=== PATIENT | male | born 1940 | race African-American/Black ===

== ENCOUNTER 2017-05-10 07:25 | Emergency (ER) | payer MEDICARE ==
[2017-05-10] MEDS ORDERED: Fluconazole 100 MG TAB ONE (07:51)
[2017-05-10 08:15] LABS: Bilirubin Negative (Negative); Blood, Urine Negative (Negative); Glucose, Urine (Dipstick) 500 mg/dL (Negative); Leukocyte Trace (Negative); Nitrite Positive (Negative); Protein, Urine (Dipstick) Negative (Neg-Trace); Urobilinogen 0.2 mg/dL (0.2-1.0)
[2017-05-10 08:22] LABS: Clarity Hazy (Clear)
[2017-05-10 08:24] LABS: Anion Gap 14 mmol/L (10-20); BUN (Urea Nitrogen) 8 mg/dL (8.4-25.7); Calc. Creatinine Clearance 0 mL/min (70-130); Calcium 9.6 mg/dL (7.8-10.44); Carbon Dioxide 22 mmol/L (23-31); Chloride 101 mmol/L (98-107); Estimated GFR-MDRD 70; Glucose 381 mg/dL (83-110); Potassium 4.3 mmol/L (3.5-5.1); Sodium 133 mmol/L (136-145)
[2017-05-10 08:24] LABS: Bacteria/HPF 2+ HPF (None Seen); RBC/HPF 0-3 HPF (0-3); Squamous Epithelial 0-3 HPF (0-3); Yeast-All Forms Rare HPF (None Seen)
[2017-05-10] MEDS ORDERED: Sulfameth/Trimethoprim DS 800-160mg TAB ONE (08:29)
[2017-05-10 08:56] LABS: #Basophils 0.1 thou/uL (0.0-0.2); #Eosinphils 0.1 thou/uL (0.0-0.7); #Lymphocytes 1.4 thou/uL (1.20-3.40); #Monocytes 0.8 thou/uL (0.11-0.59); #Neutrophils 6.8 thou/uL (1.40-6.50); %Basophils 0.7 % (0.0-1.0); %Eosinophils 1.3 % (0.0-10.0); %Lymphocytes 15.2 % (21.0-51.0); %Monocytes 8.9 % (0.0-10.0); Anisocytosis SLIGHT = 6-15 cells (100X) (0-5/hpf); Elliptocytes SLIGHT = 2-5 cells (100X) (0-1/hpf); Hemoglobin 6.7 g/dL (14.0-18.0); Hypochromia MODERATE=16-30 cells (100X) (0-5/hpf); MDiff Complete? YES; Mean Corpuscular HGB CONC 27.6 g/dL (32.0-36.0); Mean Corpuscular Hemoglobin 16.9 pg (27.0-31.0); Mean Corpuscular Volume 61.4 fl (80.0-94.0); Mean Platelet Volume 6.7 fL (7.4-10.4); Microcytosis MODERATE=15-30 cells (100X) (0-5/hpf); Platelet Count 307 thou/uL (130-400); Poikilocytosis SLIGHT = 6-15 cells (100X) (0-5/hpf); RBC Distribution Width 15.7 % (11.5-14.5); Red Blood Cell (RBC) Count 3.95 mill/uL (4.70-6.10); Rouleaux Formation SLIGHT = 1-5 cells (100X) (None Seen); Schistocytes SLIGHT = 2-5 cells (100X) (0-1/hpf); Tear Drops SLIGHT = 2-5 cells (100X) (0-1/hpf); White Blood Cell (WBC) Count 9.3 thou/uL (4.8-10.8)
== END 2017-05-10 09:20 | disposition short-term general hospital (02) ==
LOC: BURERS 07:25
DX: N47.2 Paraphimosis (principal); B37.42 Candidal balanitis; D64.9 Anemia, unspecified; E11.65 Type 2 diabetes mellitus with hyperglycemia; I11.0 Hypertensive heart disease with heart failure; I50.9 Heart failure, unspecified; E78.5 Hyperlipidemia, unspecified; Z87.891 Personal history of nicotine dependence
CPT/HCPCS: 36415; 36416; 80048; 81003; 81015; 82274; 85025; 87077; 87086; 87186; 99284

== ENCOUNTER 2019-04-19 17:26 | Emergency (ER) | payer MEDICARE ==
[2019-04-19 18:19] LABS: #Basophils 0.1 thou/uL (0.0-0.2); #Eosinphils 0.3 thou/uL (0.0-0.7); #Monocytes 0.8 thou/uL (0.11-0.59); #Neutrophils 5.1 thou/uL (1.40-6.50); %Basophils 1.1 % (0.0-1.0); %Lymphocytes 23.7 % (21.0-51.0); %Monocytes 9.6 % (0.0-10.0); %Neutrophils 62.5 % (42.0-75.0); Hemoglobin 6.7 g/dL (14.0-18.0); Hypochromia MARKED = >30 cells (100X) (0-5/hpf); MDiff Complete? YES; Macrocytosis SLIGHT = 6-15 cells (100X) (0-5/hpf); Mean Corpuscular HGB CONC 27.5 g/dL (32.0-36.0); Mean Corpuscular Hemoglobin 17.8 pg (27.0-31.0); Mean Corpuscular Volume 64.8 fL (78.0-98.0); Mean Platelet Volume 7.1 fL (7.4-10.4); Microcytosis MARKED = >30 cells (100X) (0-5/hpf); Platelet Count 344 thou/uL (130-400); Polychromasia SLIGHT = 2-3 cells (100X) (0-2/hpf); RBC Distribution Width 18.5 % (11.5-14.5); Red Blood Cell (RBC) Count 3.78 mill/uL (4.70-6.10); White Blood Cell (WBC) Count 8.2 thou/uL (4.8-10.8)
[2019-04-19 18:22] LABS: ALT (SGPT) 11 U/L (8-55); AST (SGOT) 11 U/L (5-34); Albumin 3.8 g/dL (3.4-4.8); Alkaline Phosphatase 90 U/L (40-110); Anion Gap 14 mmol/L (10-20); BUN (Urea Nitrogen) 10 mg/dL (8.4-25.7); Bilirubin, Total 0.3 mg/dL (0.2-1.2); Calc. Creatinine Clearance 0 mL/min (70-130); Calcium 9.8 mg/dL (7.8-10.44); Carbon Dioxide 25 mmol/L (23-31); Chloride 103 mmol/L (98-107); Estimated GFR-MDRD 63; Globulin 3.4 g/dL (2.4-3.5); Glucose 183 mg/dL (83-110); Protein, Total 7.2 g/dL (5.8-8.1); Sodium 138 mmol/L (136-145)
--- NOTE | 2019-04-19 18:33 | RAD ---
Chest one view HISTORY: Dyspnea. COMPARISON: 06/25/2017. FINDINGS: Cardiac silhouette is magnified by projection. Pulmonary vasculature accentuated by shallow inspiration. Mediastinum is midline with a right subclavian Port-A-Cath. No lobar consolidation or evidence of pneumothorax. IMPRESSION: No active cardiopulmonary abnormalities are demonstrated.
== END 2019-04-19 23:08 | disposition home or self-care (01) ==
LOC: BURERS 17:26
DX: D50.9 Iron deficiency anemia, unspecified (principal); I11.0 Hypertensive heart disease with heart failure; I50.9 Heart failure, unspecified; E11.9 Type 2 diabetes mellitus without complications; E78.5 Hyperlipidemia, unspecified; E78.00 Pure hypercholesterolemia, unspecified; F17.210 Nicotine dependence, cigarettes, uncomplicated; Z79.899 Other long term (current) drug therapy; Z79.4 Long term (current) use of insulin; Z79.82 Long term (current) use of aspirin
CPT/HCPCS: 36430; 71045; 80053; 83880; 84484; 85025; 86850; 86900; 86901; 93005; P9016

== ENCOUNTER 2019-05-18 04:16 | Emergency (ER) | payer MEDICARE ==
[2019-05-18 04:56] LABS: #Basophils 0.1 thou/uL (0.0-0.2); #Eosinphils 0.4 thou/uL (0.0-0.7); #Monocytes 0.7 thou/uL (0.11-0.59); #Neutrophils 7.2 thou/uL (1.40-6.50); %Basophils 0.7 % (0.0-1.0); %Eosinophils 4.1 % (0.0-10.0); %Lymphocytes 21.2 % (21.0-51.0); %Monocytes 6.3 % (0.0-10.0); %Neutrophils 67.6 % (42.0-75.0); Anisocytosis MODERATE=16-30 cells (100X) (0-5/hpf); Hemoglobin 8.6 g/dL (14.0-18.0); Howell Jolly Bodies SLIGHT = 1-2 cells (100X) (None Seen); Hypochromia SLIGHT = 6-15 cells (100X) (0-5/hpf); MDiff Complete? YES; Mean Corpuscular HGB CONC 30.2 g/dL (32.0-36.0); Mean Corpuscular Hemoglobin 20.1 pg (27.0-31.0); Mean Corpuscular Volume 66.7 fL (78.0-98.0); Mean Platelet Volume 7.3 fL (7.4-10.4); Microcytosis SLIGHT = 6-15 cells (100X) (0-5/hpf); Ovalocytes SLIGHT = 2-5 cells (100X) (0-1/hpf); Platelet Count 299 thou/uL (130-400); Platelet Morphology Comment Appears Adequate; Polychromasia SLIGHT = 2-3 cells (100X) (0-2/hpf); RBC Distribution Width 20.6 % (11.5-14.5); Red Blood Cell (RBC) Count 4.26 mill/uL (4.70-6.10); Target Cells SLIGHT = 2-5 cells (100X) (0-1/hpf); Tear Drops SLIGHT = 2-5 cells (100X) (0-1/hpf); Vacuoles SLIGHT; White Blood Cell (WBC) Count 10.7 thou/uL (4.8-10.8)
[2019-05-18 05:00] LABS: ALT (SGPT) 15 U/L (8-55); AST (SGOT) 11 U/L (5-34); Albumin 3.7 g/dL (3.4-4.8); Alkaline Phosphatase 99 U/L (40-110); Anion Gap 14 mmol/L (10-20); BUN (Urea Nitrogen) 9 mg/dL (8.4-25.7); Bilirubin, Total 0.2 mg/dL (0.2-1.2); CK (CPK) 293 U/L (30-200); Calc. Creatinine Clearance 0 mL/min (70-130); Calcium 9.5 mg/dL (7.8-10.44); Carbon Dioxide 24 mmol/L (23-31); Chloride 101 mmol/L (98-107); Estimated GFR-MDRD 62; Globulin 3.5 g/dL (2.4-3.5); Glucose 325 mg/dL (83-110); Lipase 60 U/L (8-78); Potassium 4.2 mmol/L (3.5-5.1); Protein, Total 7.2 g/dL (5.8-8.1); Sodium 135 mmol/L (136-145)
[2019-05-18 05:17] LABS: CKMB 3.3 ng/mL (0-6.6)
[2019-05-18] MEDS ORDERED: Aspirin Chewable 81 MG TAB ONE (05:34)
--- NOTE | 2019-05-18 06:41 | RAD ---
PORTABLE CHEST: Date: 05/18/2019 An AP portable film at 0440 hours is compared to the 04/19/2019 study. The heart size is normal and unchanged. A MediPort catheter remains in place on the right. there is n o focal pulmonary infiltrate or effusion. No edema or definite congestion seen. Trachea is midline. IMPRESSION: No acute thoracic findings. POS: HOME
[2019-05-18 07:23] LABS: #Lymphocytes 2.3 thou/uL (1.20-3.40)
== END 2019-05-18 05:57 | disposition short-term general hospital (02) ==
LOC: BURERS 04:16
DX: R07.9 Chest pain, unspecified (principal); E11.9 Type 2 diabetes mellitus without complications; I50.9 Heart failure, unspecified; I11.0 Hypertensive heart disease with heart failure; E78.00 Pure hypercholesterolemia, unspecified; F17.210 Nicotine dependence, cigarettes, uncomplicated; Z79.4 Long term (current) use of insulin; Z79.82 Long term (current) use of aspirin; Z79.899 Other long term (current) drug therapy
CPT/HCPCS: 71045; 80053; 82550; 82553; 83690; 83880; 84484; 85025; 93005

== ENCOUNTER 2020-02-13 19:08 | Observation (INO) | payer MEDICARE ==
[2020-02-13 20:11] LABS: Hemoglobin 5.3 g/dL (14.0-18.0); Mean Corpuscular HGB CONC 28.1 g/dL (32.0-36.0); Mean Corpuscular Hemoglobin 19.2 pg (27.0-31.0); Mean Corpuscular Volume 68.4 fL (78.0-98.0); Platelet Count 171 thou/uL (130-400); RBC Distribution Width 18.4 % (11.5-14.5); Red Blood Cell (RBC) Count 2.75 mill/uL (4.70-6.10); White Blood Cell (WBC) Count 8.4 thou/uL (4.8-10.8)
[2020-02-13 20:28] LABS: ALT (SGPT) 14 U/L (8-55); AST (SGOT) 13 U/L (5-34); Albumin 3.4 g/dL (3.4-4.8); Alkaline Phosphatase 104 U/L (40-110); Anion Gap 14 mmol/L (10-20); BUN (Urea Nitrogen) 14 mg/dL (8.4-25.7); Bilirubin, Total 0.3 mg/dL (0.2-1.2); Calc. Creatinine Clearance 0 mL/min (70-130); Calcium 8.8 mg/dL (7.8-10.44); Carbon Dioxide 24 mmol/L (23-31); Chloride 101 mmol/L (98-107); Globulin 2.8 g/dL (2.4-3.5); Glucose 329 mg/dL (83-110); Protein, Total 6.2 g/dL (5.8-8.1); Sodium 135 mmol/L (136-145)
[2020-02-13 20:29] LABS: #Basophils 0.1 thou/uL (0.0-0.2); #Eosinphils 0.2 thou/uL (0.0-0.7); #Lymphocytes 1.6 thou/uL (1.20-3.40); #Monocytes 0.7 thou/uL (0.11-0.59); #Neutrophils 5.8 thou/uL (1.40-6.50); %Basophils 0.9 % (0.0-1.0); %Eosinophils 2.3 % (0.0-10.0); %Lymphocytes 18.8 % (21.0-51.0); %Monocytes 8.2 % (0.0-10.0); %Neutrophils 69.8 % (42.0-75.0); Elliptocytes SLIGHT = 2-5 cells (100X) (0-1/hpf); Hypochromia MODERATE=16-30 cells (100X) (0-5/hpf); MDiff Complete? YES; Macrocytosis MODERATE=16-30 cells (100X) (0-5/hpf); Microcytosis MARKED = >30 cells (100X) (0-5/hpf)
--- NOTE | 2020-02-13 21:29 | RAD ---
PORTABLE CHEST: 02/13/20 An AP portable film at 1939 is compared with a 05/26/19 study. The heart is slightly enlarged but no more so than before. There is some very minor prominence of th e vasculature. This could represent very early congestive change, but the findings is borderline. The re are no large effusions, gross pulmonary infiltrates of concern. A Mediport catheter is in place as before. The tip is in the vicinity of the superior vena cava. That tip does appear to have worked a little more proximal than it was before. IMPRESSION: 1. Mild cardiomegaly no different than before, but there is a question of slight vascular conges tion. 2. The tubing of the Mediport catheter appears to have retracted superiorly slightly since the nhan hernández study. POS: HOME
[2020-02-13] MEDS ORDERED: HYDROcodone/Acetaminophen 5/325 mg Tablet PO PRN (23:15)
[2020-02-13] MEDS ORDERED: Ondansetron ODT 4 MG TAB SL PRN (23:15)
[2020-02-13] MEDS ORDERED: Acetaminophen 325 MG TAB PO PRN (23:15)
[2020-02-13] MEDS ORDERED: Ondansetron PF 4 MG/2 ML Vial IVP PRN (23:15)
[2020-02-14 01:44] VITALS: BMI 26.7
[2020-02-14] MEDS ORDERED: clonazePAM 0.5 MG TAB PO PRN (06:24)
[2020-02-14] MEDS ORDERED: Haloperidol 5 MG TAB PO PRN (06:24)
[2020-02-14] MEDS ORDERED: Insulin Regular 300 UNITS/3 ML VIAL SC SCH ×2 (06:30→10:59)
[2020-02-14 08:18] LABS: Hemoglobin 7.2 g/dL (14.0-18.0); Mean Corpuscular HGB CONC 29.9 g/dL (32.0-36.0); Mean Corpuscular Hemoglobin 21.8 pg (27.0-31.0); Platelet Count 168 thou/uL (130-400); RBC Distribution Width 22.1 % (11.5-14.5); Red Blood Cell (RBC) Count 3.29 mill/uL (4.70-6.10); White Blood Cell (WBC) Count 7.5 thou/uL (4.8-10.8)
[2020-02-14 08:20] LABS: Anion Gap 15 mmol/L (10-20); BUN (Urea Nitrogen) 16 mg/dL (8.4-25.7); Calc. Creatinine Clearance 55 mL/min (70-130); Calcium 8.8 mg/dL (7.8-10.44); Carbon Dioxide 22 mmol/L (23-31); Chloride 101 mmol/L (98-107); Glucose 465 mg/dL (83-110); Potassium 4.5 mmol/L (3.5-5.1); Sodium 133 mmol/L (136-145)
[2020-02-14 08:43] LABS: #Basophils 0.1 thou/uL (0.0-0.2); #Eosinphils 0.1 thou/uL (0.0-0.7); #Monocytes 0.7 thou/uL (0.11-0.59); #Neutrophils 5.5 thou/uL (1.40-6.50); %Basophils 0.7 % (0.0-1.0); %Eosinophils 1.5 % (0.0-10.0); %Lymphocytes 13.9 % (21.0-51.0); %Monocytes 9.8 % (0.0-10.0); Anisocytosis SLIGHT = 6-15 cells (100X) (0-5/hpf); Elliptocytes SLIGHT = 2-5 cells (100X) (0-1/hpf); Hypochromia SLIGHT = 6-15 cells (100X) (0-5/hpf); MDiff Complete? YES; Macrocytosis SLIGHT = 6-15 cells (100X) (0-5/hpf); Microcytosis MODERATE=15-30 cells (100X) (0-5/hpf); Platelet Morphology Comment Appears Adequate; Polychromasia SLIGHT = 2-3 cells (100X) (0-2/hpf); Target Cells SLIGHT = 2-5 cells (100X) (0-1/hpf)
[2020-02-14] MEDS ORDERED: Non-Formulary Item 1 EACH (Insulin Detemir [Levemir Flextouch] 100 UNIT/ML Insuln.Pen) SQ SCH (09:00)
[2020-02-14] MEDS ORDERED: Aspirin 81 mg Enteric Coated Tablet PO SCH (09:00)
[2020-02-14] MEDS ORDERED: Cyanocobalamin (Vitamin B-12) 1,000 MCG TAB PO SCH (09:00)
[2020-02-14] MEDS ORDERED: Non-Formulary Item 1 EACH (Cyanocobalamin (Vitamin B-12) [Vitamin B-12] 1,000 MCG Capsule PO SCH (09:00)
[2020-02-14] MEDS ORDERED: Lantus 1000 UNITS/10 ML VIAL SC SCH ×2 (09:00→21:00)
[2020-02-14] MEDS ORDERED: FLU VACC QS2020-21(65YR UP)/PF 240 MCG/0.7 ML SYRINGE IM ONE (09:00)
[2020-02-14] MEDS ORDERED: Folic Acid 1 MG TAB PO SCH (09:00)
[2020-02-14] MEDS ORDERED: Insulin Regular 300 UNITS/3 ML VIAL SC PRN (13:30)
[2020-02-14] MEDS ORDERED: Dextrose 5% in Water 1,000 ML IV PRN (13:30)
[2020-02-14] MEDS ORDERED: Dextrose 50% Abboject 50 ML SYRINGE IVP PRN (13:30)
[2020-02-14] MEDS ORDERED: Lisinopril 10 MG TAB PO SCH (14:15)
[2020-02-14] MEDS ORDERED: Carvedilol 3.125 MG TAB PO SCH (17:00)
[2020-02-14 17:48] VITALS: BP 164/80; TEMP 98
[2020-02-14] MEDS ORDERED: Atorvastatin Calcium 40 MG TAB PO SCH (21:00)
[2020-02-14] MEDS ORDERED: Non-Formulary Item 1 EACH (Atorvastatin Calcium [Lipitor] 20 MG Tab) PO SCH (21:00)
--- NOTE | 2020-02-15 03:17 | DIS ---
DATE OF ADMISSION: 02/13/2020 DATE OF DISCHARGE: 02/14/2020 DISCHARGE DIAGNOSIS: Acute on chronic anemia. DISPOSITION: Home. HOSPITAL COURSE: Patient was admitted with 5.3 hemoglobin with a history of chronic anemia followed by Oncology, Dr. Tam, and PCP is Dr. Leroy. He was given 2 units of packed cells and IV hydration slowly over a period of 12-16 hours. He tolerated the infusion well. He improved his hemoglobin to 7.2 and was sent home on a diabetic diet. ACTIVITY: As tolerated. ALLERGIES: NO KNOWN ALLERGIES. CODE STATUS: Full. MEDICATIONS: 1. Aspirin 81 mg. 2. Atorvastatin 40 mg. 3. Carvedilol 3.125 mg b.i.d. 4. Cyanocobalamin 1000 mcg daily. 5. Folic acid 1 mg daily. 6. Glipizide 2.5 mg daily. 7. 12 units of Lantus insulin subcu b.i.d. 8. Isosorbide mononitrate 30 mg daily. 9. Lisinopril 20 mg daily. 10. Pantoprazole 40 mg daily. FOLLOWUP: With his PCP, Dr. Leroy, for repeat CBC and continued care. Job ID: [id number] [facility]
--- NOTE | 2020-02-15 05:48 | HP ---
HISTORY OF PRESENT ILLNESS: This is a 79-year-old male patient with a history of chronic anemia, who presented to [facility] Emergency Room with a complaint of weakness. He reports he felt as he usually does when he has in past needed blood transfusion. His fecal occult blood was negative. His initial hemoglobin was 5.3. Primary care physician is Kory Fuentes DO. CHIEF COMPLAINT: Weakness. REVIEW OF SYSTEMS: CONSTITUTIONAL: No fevers, chills, weight gain or weight loss. EYES: Denies blurry vision, discharge, or redness. ENT: Denies congestion, cough, or sore throat. CARDIOVASCULAR: Denies chest pain, dyspnea, edema, or palpitations. PULMONARY: No coughing, wheezing, or shortness of breath. GASTROINTESTINAL: Denies abdominal pain, nausea, or vomiting. No diarrhea or constipation. GENITOURINARY: Denies dysuria or hematuria. MUSCULOSKELETAL: He has chronic arthritis. Complains of joint pain, but no swelling. SKIN: No rash or lesion. NEUROLOGIC: He does have complaint of weakness, but no dizziness or motor changes. PAST MEDICAL HISTORY: Coronary artery disease, diastolic congestive heart failure, hypertension, dyslipidemia, prostate cancer, colon cancer. He has chronic iron deficiency anemia requiring occasional iron infusions followed by Dr. Tam. Most recently in April of 2019 he required 2 units of packed cells, and he has type 2 diabetes mellitus. PAST SURGICAL HISTORY: 1. PTCA angioplasty. 2. Prostate biopsy. 3. Partial colectomy for colon cancer. 4. He has a MediPort in place. SOCIAL HISTORY: He is a nonsmoker. No alcohol or recreational drug. He quit smoking three months ago. He is a . He lives with his brother and his adult children. FAMILY HISTORY: Significant for colon cancer, diabetes, coronary artery disease in his father and hypertension in his mother. ALLERGIES: NO KNOWN DRUG ALLERGIES. CURRENT MEDICATIONS: 1. Lisinopril 20 mg daily. 2. Carvedilol 3.125 b.i.d. 3. Atorvastatin 40 mg daily. 4. Lantus 12 units b.i.d. 5. Ferrous gluconate 325 daily. 6. Isosorbide mononitrate 30 mg daily. 7. Aspirin 81 mg. 8. Pantoprazole 40 mg daily. 9. Glipizide 2.5 mg daily. 10. Cyanocobalamin 1000 mcg daily. 11. Folic acid 1 mg daily. PHYSICAL EXAMINATION: VITAL SIGNS: Temperature 98.6, heart rate 85, respirations 18, O2 saturation 99% on room air, blood pressure 139/66. GENERAL: Well-developed, mildly obese male, in no acute distress. HEENT: Pupils are equal, round, and reactive to light. He has bilateral cataracts. Oropharynx is clear without lesion. No erythema or exudate. NECK: Supple. No lymphadenopathy. No thyroid nodules or enlargement. No JVD. HEART: Regular rate and rhythm. No murmurs, rubs, or gallops. LUNGS: Clear to auscultation bilaterally. No wheezes or crackles. ABDOMEN: Soft, nontender to palpation. Normoactive bowel sounds. No mass or megaly. EXTREMITIES: No clubbing, cyanosis, or edema. SKIN: No rash or lesion. NEUROLOGIC: Intact grossly CN II through XII. Normal gross motor. He is alert, oriented x3. Normal mood and affect. LABORATORY DATA: His initial H and H were 5.3 and 18.8, WBC is 8.4, platelets 171. He has marked microcytosis. His H and H post transfusion 2 units packed cell was 7.2 and 24. Sodium 133, potassium 4.5, chloride 101, carbon dioxide 22, anion gap 15, BUN 16, creatinine 1.37, GFR 61, glucose 465, and calcium 8.8. IMAGING: Chest x-ray showed mild cardiomegaly with possible early congestion, but no effusion or infiltrate. MediPort catheter tip was in the superior vena cava. ASSESSMENT: Acute on chronic anemia, diabetes mellitus type 2, insulin dependent, hypertension, hyperglycemia, uncontrolled diabetes. Code status is full code. PLAN: 2 units of packed cells, gentle hydration, correct hyperglycemia with sliding scale insulin, regular insulin. If he responds to packed cells with adequate increase in his blood count, we will discharge later this afternoon. Job ID: [id number]
[2020-02-15] MEDS ORDERED: Lisinopril 10 MG TAB PO SCH (09:00)
[2020-02-15] MEDS ORDERED: Ferrous Gluconate 324 MG TAB PO SCH (09:00)
[2020-02-15 17:33] LABS: SARS-CoV-2 MS2 Positive; SARS-CoV-2 N Gene Negative; SARS-CoV-2 S Gene Negative; SARS-CoV-2 by NAA Not Detected (NotDetected); SARS-CoV-2 orf1ab Negative
== END 2020-02-14 17:45 | disposition home or self-care (01) ==
LOC: BURERS 19:08 → BURMED 22:23
PROVIDERS: ADMIT Family Medicine; ATTEND Family Medicine
DX: D50.9 Iron deficiency anemia, unspecified (principal); E11.65 Type 2 diabetes mellitus with hyperglycemia; I25.10 Atherosclerotic heart disease of native coronary artery without angina pectoris; I11.0 Hypertensive heart disease with heart failure; I50.30 Unspecified diastolic (congestive) heart failure; E78.5 Hyperlipidemia, unspecified; C61 Malignant neoplasm of prostate; Z85.038 Personal history of other malignant neoplasm of large intestine; Z87.891 Personal history of nicotine dependence; Z79.4 Long term (current) use of insulin; Z79.82 Long term (current) use of aspirin; Z79.899 Other long term (current) drug therapy; Z20.828 Contact with and (suspected) exposure to other viral communicable diseases
CPT/HCPCS: 36415; 36416; 36430; 71045; 80048; 80053; 82274; 84484; 85025; 86850; 86900; 86901; 86922; 87635; 93005; G0378; J1815; P9016; U0003

== ENCOUNTER 2020-06-19 18:31 | Emergency (ER) | payer MEDICARE ==
[2020-06-19 19:23] LABS: #Basophils 0.1 thou/uL (0.0-0.2); #Eosinphils 0.2 thou/uL (0.0-0.7); #Lymphocytes 1.4 thou/uL (1.20-3.40); #Monocytes 0.7 thou/uL (0.11-0.59); #Neutrophils 5.5 thou/uL (1.40-6.50); %Basophils 1.5 % (0.0-1.0); %Eosinophils 2.2 % (0.0-10.0); %Lymphocytes 17.2 % (21.0-51.0); %Monocytes 9.3 % (0.0-10.0); %Neutrophils 69.7 % (42.0-75.0); Hemoglobin 8.9 g/dL (14.0-18.0); Mean Corpuscular HGB CONC 30.4 g/dL (32.0-36.0); Mean Corpuscular Hemoglobin 24.7 pg (27.0-31.0); Mean Corpuscular Volume 81.1 fL (78.0-98.0); Mean Platelet Volume 9.5 fL (7.4-10.4); Platelet Count 203 thou/uL (130-400); RBC Distribution Width 15.9 % (11.5-14.5); Red Blood Cell (RBC) Count 3.61 mill/uL (4.70-6.10); White Blood Cell (WBC) Count 7.9 thou/uL (4.8-10.8)
[2020-06-19 19:32] LABS: MDiff Complete? YES
[2020-06-19 19:45] LABS: ALT (SGPT) 17 U/L (8-55); AST (SGOT) 15 U/L (5-34); Albumin 3.5 g/dL (3.4-4.8); Alkaline Phosphatase 139 U/L (40-110); Anion Gap 13 mmol/L (10-20); BUN (Urea Nitrogen) 8 mg/dL (8.4-25.7); Bilirubin, Total 0.3 mg/dL (0.2-1.2); Calc. Creatinine Clearance 0 mL/min (70-130); Calcium 9.3 mg/dL (7.8-10.44); Carbon Dioxide 27 mmol/L (23-31); Chloride 98 mmol/L (98-107); Globulin 3.3 g/dL (2.4-3.5); Glucose 394 mg/dL (83-110); Potassium 3.9 mmol/L (3.5-5.1); Protein, Total 6.8 g/dL (5.8-8.1); Sodium 134 mmol/L (136-145)
== END 2020-06-19 20:15 | disposition home or self-care (01) ==
LOC: BURERS 18:31
DX: R04.0 Epistaxis (principal); R07.9 Chest pain, unspecified; E11.65 Type 2 diabetes mellitus with hyperglycemia; K21.9 Gastro-esophageal reflux disease without esophagitis; F17.210 Nicotine dependence, cigarettes, uncomplicated; Z79.4 Long term (current) use of insulin; Z79.82 Long term (current) use of aspirin; Z79.899 Other long term (current) drug therapy
CPT/HCPCS: 71045; 80053; 83880; 84484; 85025; 93005

== ENCOUNTER 2020-07-17 11:15 | Emergency (ER) | payer MEDICARE | END 2020-07-17 12:45 | disposition home or self-care (01) | LOC: BURERS 11:15 | DX: K62.89 Other specified diseases of anus and rectum (principal); I11.0 Hypertensive heart disease with heart failure; I50.9 Heart failure, unspecified; E11.9 Type 2 diabetes mellitus without complications; K21.9 Gastro-esophageal reflux disease without esophagitis; F17.210 Nicotine dependence, cigarettes, uncomplicated; E78.5 Hyperlipidemia, unspecified; E78.00 Pure hypercholesterolemia, unspecified; Z79.4 Long term (current) use of insulin; Z79.899 Other long term (current) drug therapy; Z79.82 Long term (current) use of aspirin | CPT/HCPCS: 99281 ==

== ENCOUNTER 2020-08-04 17:06 | Emergency (ER) | payer MEDICARE ==
[2020-08-04 18:27] LABS: Hemoglobin 8.4 g/dL (14.0-18.0); Mean Corpuscular HGB CONC 29.1 g/dL (32.0-36.0); Mean Corpuscular Hemoglobin 21.8 pg (27.0-31.0); Mean Corpuscular Volume 74.7 fL (78.0-98.0); Mean Platelet Volume 8.2 fL (7.4-10.4); Platelet Count 379 thou/uL (130-400); RBC Distribution Width 19.4 % (11.5-14.5); Red Blood Cell (RBC) Count 3.85 mill/uL (4.70-6.10); White Blood Cell (WBC) Count 13.1 thou/uL (4.8-10.8)
[2020-08-04] MEDS ORDERED: Insulin Regular 300 UNITS/3 ML VIAL ONE (18:31)
[2020-08-04 18:32] LABS: ALT (SGPT) 14 U/L (8-55); AST (SGOT) 10 U/L (5-34); Albumin 3.5 g/dL (3.4-4.8); Alkaline Phosphatase 245 U/L (40-110); Anion Gap 16 mmol/L (10-20); BUN (Urea Nitrogen) 8 mg/dL (8.4-25.7); Bilirubin, Total 0.3 mg/dL (0.2-1.2); Calc. Creatinine Clearance 0 mL/min (70-130); Calcium 9.8 mg/dL (7.8-10.44); Carbon Dioxide 24 mmol/L (23-31); Chloride 97 mmol/L (98-107); Globulin 3.1 g/dL (2.4-3.5); Glucose 501 mg/dL (83-110); Potassium 4.1 mmol/L (3.5-5.1); Protein, Total 6.6 g/dL (5.8-8.1); Sodium 133 mmol/L (136-145)
[2020-08-04] MEDS ORDERED: cefTRIAXone\\ROCEPHIN 1 GM VIAL ONE (18:51)
[2020-08-04] MEDS ORDERED: Fluconazole 100 MG TAB ONE (18:51)
[2020-08-04 18:55] LABS: Anisocytosis SLIGHT = 6-15 cells (100X) (0-5/hpf); Band 1 % (5-11); Eosinophils 1 % (0-10); Hypochromia MARKED = >30 cells (100X) (0-5/hpf); Lymphocytes 9 % (21-51); MDiff Complete? YES; Metamyelocyte 1 % (0-0); Microcytosis SLIGHT = 6-15 cells (100X) (0-5/hpf); Monocytes 8 % (0-10); Neutrophil 79 % (42-75); Ovalocytes SLIGHT = 2-5 cells (100X) (0-1/hpf); Platelet Morphology Comment Appears Adequate
[2020-08-04 19:02] LABS: Bilirubin Negative (Negative); Blood, Urine Trace (Negative); Clarity Slightly Cloudy (Clear); Glucose, Urine (Dipstick) >=1000 mg/dL (Negative); Ketone, Urine Negative (Negative); Leukocyte Small (Negative); Nitrite Positive (Negative); Protein, Urine (Dipstick) Negative (Neg-Trace); Urobilinogen 0.2 mg/dL (Less than 2)
[2020-08-04 19:22] LABS: Bacteria/HPF 2+ HPF (None Seen); RBC/HPF 0-3 HPF (0-3); Squamous Epithelial 0-3 HPF (0-3); WBC/HPF 21-50 HPF (0-3); Yeast-Budding 1+ HPF (None Seen); Yeast-Hyphae 1+ HPF (None Seen)
== END 2020-08-04 22:10 | disposition short-term general hospital (02) ==
LOC: BURERS 17:06
DX: N47.6 Balanoposthitis (principal); E10.65 Type 1 diabetes mellitus with hyperglycemia; I11.0 Hypertensive heart disease with heart failure; I50.9 Heart failure, unspecified; K21.9 Gastro-esophageal reflux disease without esophagitis; E78.5 Hyperlipidemia, unspecified; E78.00 Pure hypercholesterolemia, unspecified; F17.210 Nicotine dependence, cigarettes, uncomplicated; Z79.899 Other long term (current) drug therapy; Z79.82 Long term (current) use of aspirin
CPT/HCPCS: 36415; 36416; 71045; 80053; 81003; 81015; 83605; 83880; 84484; 85025; 87040; 93005; 96365; 96367; 96375; J0696; J1815; J3370

== ENCOUNTER 2020-09-26 09:24 | Emergency (ER) | payer MEDICARE ==
[2020-09-26 10:21] LABS: ALT (SGPT) 10 U/L (8-55); AST (SGOT) 7 U/L (5-34); Alkaline Phosphatase 165 U/L (40-110); Anion Gap 14 mmol/L (10-20); BUN (Urea Nitrogen) 8 mg/dL (8.4-25.7); Bilirubin, Total 0.2 mg/dL (0.2-1.2); Calc. Creatinine Clearance 0 mL/min (70-130); Calcium 9.1 mg/dL (7.8-10.44); Carbon Dioxide 25 mmol/L (23-31); Chloride 101 mmol/L (98-107); Globulin 3.6 g/dL (2.4-3.5); Glucose 282 mg/dL (83-110); Lipase 26 U/L (8-78); Potassium 4.2 mmol/L (3.5-5.1); Protein, Total 6.6 g/dL (5.8-8.1); Sodium 136 mmol/L (136-145)
[2020-09-26] MEDS ORDERED: Morphine 4 MG/ML VIAL ONE (10:29)
[2020-09-26] MEDS ORDERED: HYDROcodone/Acetaminophen 10/325 mg Tablet ONE (10:32)
[2020-09-26 10:38] LABS: Mean Corpuscular HGB CONC 27.6 g/dL (32.0-36.0); Mean Corpuscular Hemoglobin 16.8 pg (27.0-31.0); Mean Platelet Volume 6.4 fL (7.4-10.4); Platelet Count 431 thou/uL (130-400); RBC Distribution Width 19.9 % (11.5-14.5); Red Blood Cell (RBC) Count 3.59 mill/uL (4.70-6.10); White Blood Cell (WBC) Count 9.1 thou/uL (4.8-10.8)
[2020-09-26 10:40] LABS: #Eosinphils 0.1 thou/uL (0.0-0.7); #Lymphocytes 1.3 thou/uL (1.20-3.40); #Monocytes 0.6 thou/uL (0.11-0.59); #Neutrophils 7.1 thou/uL (1.40-6.50); %Basophils 0.5 % (0.0-1.0); %Eosinophils 0.6 % (0.0-10.0); %Monocytes 7.1 % (0.0-10.0); %Neutrophils 77.9 % (42.0-75.0); Anisocytosis SLIGHT = 6-15 cells (100X) (0-5/hpf); Hypochromia MODERATE=16-30 cells (100X) (0-5/hpf); MDiff Complete? YES; Microcytosis SLIGHT = 6-15 cells (100X) (0-5/hpf); Ovalocytes SLIGHT = 2-5 cells (100X) (0-1/hpf)
== END 2020-09-26 10:56 | disposition home or self-care (01) ==
LOC: BURERS 09:24
DX: K21.9 Gastro-esophageal reflux disease without esophagitis (principal); E11.9 Type 2 diabetes mellitus without complications; I11.0 Hypertensive heart disease with heart failure; I50.9 Heart failure, unspecified; E78.5 Hyperlipidemia, unspecified; E78.00 Pure hypercholesterolemia, unspecified; Z87.891 Personal history of nicotine dependence; Z79.82 Long term (current) use of aspirin; Z79.899 Other long term (current) drug therapy
CPT/HCPCS: 36415; 74176; 80053; 83605; 83690; 85025; J2270

== ENCOUNTER 2020-10-03 13:11 | Observation (INO) | payer MEDICARE ==
[2020-10-03 13:36] LABS: #Lymphocytes 1.4 thou/uL (1.20-3.40); #Monocytes 0.7 thou/uL (0.11-0.59); #Neutrophils 5.9 thou/uL (1.40-6.50); %Basophils 0.3 % (0.0-1.0); %Eosinophils 0.4 % (0.0-10.0); %Lymphocytes 17.3 % (21.0-51.0); %Monocytes 8.6 % (0.0-10.0); %Neutrophils 73.5 % (42.0-75.0); Hemoglobin 5.1 g/dL (14.0-18.0); Mean Corpuscular HGB CONC 27.3 g/dL (32.0-36.0); Mean Corpuscular Hemoglobin 16.5 pg (27.0-31.0); Mean Corpuscular Volume 60.5 fL (78.0-98.0); Mean Platelet Volume 6.2 fL (7.4-10.4); Platelet Count 414 thou/uL (130-400); RBC Distribution Width 19.6 % (11.5-14.5); Red Blood Cell (RBC) Count 3.09 mill/uL (4.70-6.10); White Blood Cell (WBC) Count 8.1 thou/uL (4.8-10.8)
[2020-10-03 13:49] LABS: ALT (SGPT) 8 U/L (8-55); AST (SGOT) 6 U/L (5-34); Albumin 2.9 g/dL (3.4-4.8); Alkaline Phosphatase 139 U/L (40-110); Anion Gap 12 mmol/L (10-20); BUN (Urea Nitrogen) 9 mg/dL (8.4-25.7); Bilirubin, Total 0.3 mg/dL (0.2-1.2); Calc. Creatinine Clearance 0 mL/min (70-130); Carbon Dioxide 26 mmol/L (23-31); Chloride 104 mmol/L (98-107); Globulin 3.2 g/dL (2.4-3.5); Glucose 175 mg/dL (83-110); Protein, Total 6.1 g/dL (5.8-8.1); Sodium 138 mmol/L (136-145)
[2020-10-03 13:53] LABS: MDiff Complete? YES
[2020-10-03 13:56] LABS: Elliptocytes SLIGHT = 2-5 cells (100X) (0-1/hpf); Hypochromia SLIGHT = 6-15 cells (100X) (0-5/hpf); Macrocytosis SLIGHT = 6-15 cells (100X) (0-5/hpf); Microcytosis SLIGHT = 6-15 cells (100X) (0-5/hpf); Target Cells SLIGHT = 2-5 cells (100X) (0-1/hpf)
[2020-10-03 13:57] LABS: Basophilic Stippling SLIGHT = 1-2 cells (100X) (None Seen)
[2020-10-03] MEDS ORDERED: Meclizine HCl 25 MG TAB ONE (14:23)
[2020-10-03 14:24] LABS: INR-International Normal Ratio 1.2; PTT 39.1 sec (22.9-36.1)
[2020-10-03] MEDS ORDERED: Famotidine In NaCl 20 mg/50 ml Premix Bag ONE (16:01)
[2020-10-03] MEDS ORDERED: Ondansetron PF 4 MG/2 ML Vial IVP PRN (17:15)
[2020-10-03] MEDS ORDERED: Ondansetron ODT 4 MG TAB SL PRN (17:15)
[2020-10-03 17:31] VITALS: BMI 29.2
[2020-10-03] MEDS ORDERED: Senokot S 8.6-50 MG TAB PO PRN (17:51)
[2020-10-03] MEDS ORDERED: clonazePAM 0.5 MG TAB PO PRN ×2 (17:51→19:39)
[2020-10-03] MEDS: Sodium Chloride 0.9% 1,000 ML IV SCH (18:00)
[2020-10-03] MEDS: Acetaminophen 325 MG TAB PO PRN (19:17)
[2020-10-03] MEDS ORDERED: Insulin Regular 300 UNITS/3 ML VIAL SC PRN (19:26)
[2020-10-04] MEDS: Sodium Chloride 0.9% 1,000 ML IV SCH (01:57)
[2020-10-04] MEDS: Acetaminophen 325 MG TAB PO PRN (04:00)
[2020-10-04 05:35] LABS: Anion Gap 12 mmol/L (10-20); BUN (Urea Nitrogen) 9 mg/dL (8.4-25.7); Calc. Creatinine Clearance 75 mL/min (70-130); Calcium 8.6 mg/dL (7.8-10.44); Carbon Dioxide 24 mmol/L (23-31); Chloride 106 mmol/L (98-107); Glucose 138 mg/dL (83-110); Potassium 4.1 mmol/L (3.5-5.1); Sodium 138 mmol/L (136-145)
[2020-10-04 06:20] LABS: #Lymphocytes 1.2 thou/uL (1.20-3.40); #Monocytes 0.9 thou/uL (0.11-0.59); #Neutrophils 8.9 thou/uL (1.40-6.50); %Basophils 0.4 % (0.0-1.0); %Eosinophils 0.3 % (0.0-10.0); %Lymphocytes 10.6 % (21.0-51.0); %Monocytes 8.5 % (0.0-10.0); %Neutrophils 80.1 % (42.0-75.0); Mean Corpuscular Hemoglobin 19.4 pg (27.0-31.0); Mean Corpuscular Volume 66.9 fL (78.0-98.0); Mean Platelet Volume 6.8 fL (7.4-10.4); Platelet Count 369 thou/uL (130-400); RBC Distribution Width 25.7 % (11.5-14.5); White Blood Cell (WBC) Count 11.1 thou/uL (4.8-10.8)
[2020-10-04 06:23] LABS: MDiff Complete? YES; Manual Diff?? NO
[2020-10-04 06:25] LABS: Anisocytosis SLIGHT = 6-15 cells (100X) (0-5/hpf); Hypochromia MODERATE=16-30 cells (100X) (0-5/hpf); Microcytosis MODERATE=15-30 cells (100X) (0-5/hpf); Ovalocytes SLIGHT = 2-5 cells (100X) (0-1/hpf); Poikilocytosis SLIGHT = 6-15 cells (100X) (0-5/hpf); Schistocytes SLIGHT = 2-5 cells (100X) (0-1/hpf); Tear Drops SLIGHT = 2-5 cells (100X) (0-1/hpf)
[2020-10-04] MEDS ORDERED: Lantus 1000 UNITS/10 ML VIAL SC SCH (08:00)
[2020-10-04] MEDS ORDERED: Ferrous Gluconate 324 MG TAB PO SCH (09:00)
[2020-10-04] MEDS ORDERED: Cyanocobalamin (Vitamin B-12) 1,000 MCG TAB PO SCH (09:00)
[2020-10-04] MEDS ORDERED: Aspirin 81 mg Enteric Coated Tablet PO SCH (09:00)
[2020-10-04] MEDS ORDERED: Lisinopril 10 MG TAB PO SCH (09:00)
[2020-10-04] MEDS ORDERED: Furosemide 20 MG TAB PO SCH (09:15)
[2020-10-04 10:54] VITALS: TEMP 98.9
[2020-10-04 11:07] VITALS: BP 147/64
== END 2020-10-04 12:40 | disposition home or self-care (01) ==
LOC: BURERS 13:11 → BURMED 16:41
PROVIDERS: ADMIT Family Medicine; ATTEND Family Medicine
DX: D53.9 Nutritional anemia, unspecified (principal); I11.0 Hypertensive heart disease with heart failure; I50.22 Chronic systolic (congestive) heart failure; E11.9 Type 2 diabetes mellitus without complications; I25.10 Atherosclerotic heart disease of native coronary artery without angina pectoris; E78.5 Hyperlipidemia, unspecified; Z85.038 Personal history of other malignant neoplasm of large intestine; Z85.46 Personal history of malignant neoplasm of prostate; Z87.891 Personal history of nicotine dependence; Z79.4 Long term (current) use of insulin; Z79.82 Long term (current) use of aspirin; Z79.899 Other long term (current) drug therapy
CPT/HCPCS: 36415; 36416; 36430; 70450; 80048; 80053; 82274; 83880; 84484; 85025; 85610; 85730; 86850; 86900; 86901; 86922; 93005; 96374; G0378; J1815; P9016

== ENCOUNTER 2021-02-07 17:43 | Observation (INO) | payer MEDICARE ==
[2021-02-07 18:16] LABS: #Lymphocytes 0.5 thou/uL (1.20-3.40); #Monocytes 0.1 thou/uL (0.11-0.59); #Neutrophils 6.6 thou/uL (1.40-6.50); %Basophils 0.2 % (0.0-1.0); %Lymphocytes 6.5 % (21.0-51.0); %Monocytes 0.9 % (0.0-10.0); %Neutrophils 92.4 % (42.0-75.0); Hemoglobin 4.7 g/dL (14.0-18.0); Mean Corpuscular HGB CONC 27.8 g/dL (32.0-36.0); Mean Corpuscular Hemoglobin 16.3 pg (27.0-31.0); Mean Corpuscular Volume 58.5 fL (78.0-98.0); Mean Platelet Volume 6.1 fL (7.4-10.4); Platelet Count 344 thou/uL (130-400); RBC Distribution Width 19.4 % (11.5-14.5); Red Blood Cell (RBC) Count 2.86 mill/uL (4.70-6.10); White Blood Cell (WBC) Count 7.1 thou/uL (4.8-10.8)
[2021-02-07 18:27] LABS: ALT (SGPT) Less than 7 U/L (8-55); AST (SGOT) 7 U/L (5-34); Albumin 3.4 g/dL (3.4-4.8); Alkaline Phosphatase 222 U/L (40-110); Anion Gap 15 mmol/L (10-20); BUN (Urea Nitrogen) 21 mg/dL (8.4-25.7); Bilirubin, Total 0.5 mg/dL (0.2-1.2); Calc. Creatinine Clearance 0 mL/min (70-130); Calcium 10.1 mg/dL (7.8-10.44); Carbon Dioxide 22 mmol/L (23-31); Chloride 102 mmol/L (98-107); Globulin 3.6 g/dL (2.4-3.5); Glucose 188 mg/dL (83-110); Potassium 5.2 mmol/L (3.5-5.1); Sodium 134 mmol/L (136-145)
[2021-02-07 18:38] LABS: MDiff Complete? YES; Macrocytosis SLIGHT = 6-15 cells (100X) (0-5/hpf); Microcytosis MODERATE=15-30 cells (100X) (0-5/hpf)
[2021-02-07 18:39] LABS: Hypochromia MODERATE=16-30 cells (100X) (0-5/hpf)
[2021-02-07 18:40] LABS: Basophilic Stippling SLIGHT = 1-2 cells (100X) (None Seen); Elliptocytes SLIGHT = 2-5 cells (100X) (0-1/hpf); Target Cells SLIGHT = 2-5 cells (100X) (0-1/hpf)
[2021-02-07] MEDS ORDERED: Famotidine In NaCl 20 mg/50 ml Premix Bag ONE (19:13)
[2021-02-07 19:27] VITALS: BMI 31.9
[2021-02-07] MEDS: Sodium Chloride 0.9% 1,000 ML IV SCH (20:13)
[2021-02-07] MEDS ORDERED: Ondansetron ODT 4 MG TAB SL PRN (20:15)
[2021-02-07] MEDS ORDERED: Ondansetron PF 4 MG/2 ML Vial IVP PRN (20:15)
[2021-02-07] MEDS ORDERED: Acetaminophen 325 MG TAB PO PRN ×2 (20:15→22:29)
[2021-02-07] MEDS ORDERED: diphenhydrAMINE 25 MG CAP ONE (21:07)
[2021-02-07] MEDS ORDERED: diphenhydrAMINE 25 MG CAP PO SCH (21:30)
[2021-02-07] MEDS ORDERED: Acetaminophen 325 MG TAB PO SCH (21:30)
[2021-02-07] MEDS ORDERED: MEBENDAZOLE PO SCH (21:45)
[2021-02-07] MEDS ORDERED: Senokot S 8.6-50 MG TAB PO PRN (22:29)
[2021-02-07 22:53] LABS: SARS-CoV-2 NAA Rapid Test Not Detected (NotDetected)
[2021-02-08] MEDS: Sodium Chloride 0.9% 1,000 ML IV SCH (02:55)
[2021-02-08 05:20] LABS: Hemoglobin 6.8 g/dL (14.0-18.0); Mean Corpuscular HGB CONC 30.4 g/dL (32.0-36.0); Mean Corpuscular Hemoglobin 20.2 pg (27.0-31.0); Mean Corpuscular Volume 66.6 fL (78.0-98.0); Mean Platelet Volume 7.1 fL (7.4-10.4); Platelet Count 316 thou/uL (130-400); RBC Distribution Width 26.9 % (11.5-14.5); Red Blood Cell (RBC) Count 3.34 mill/uL (4.70-6.10); White Blood Cell (WBC) Count 9.2 thou/uL (4.8-10.8)
[2021-02-08 05:21] LABS: #Lymphocytes 0.9 thou/uL (1.20-3.40); #Monocytes 0.9 thou/uL (0.11-0.59); #Neutrophils 7.4 thou/uL (1.40-6.50); %Basophils 0.3 % (0.0-1.0); %Lymphocytes 9.6 % (21.0-51.0); %Monocytes 9.8 % (0.0-10.0); %Neutrophils 80.2 % (42.0-75.0)
[2021-02-08 05:28] LABS: ALT (SGPT) Less than 7 U/L (8-55); AST (SGOT) 6 U/L (5-34); Albumin 3.3 g/dL (3.4-4.8); Alkaline Phosphatase 215 U/L (40-110); Anion Gap 16 mmol/L (10-20); BUN (Urea Nitrogen) 29 mg/dL (8.4-25.7); Bilirubin, Total 0.5 mg/dL (0.2-1.2); Calc. Creatinine Clearance 43 mL/min (70-130); Calcium 9.7 mg/dL (7.8-10.44); Carbon Dioxide 22 mmol/L (23-31); Chloride 105 mmol/L (98-107); Globulin 2.9 g/dL (2.4-3.5); Glucose 155 mg/dL (83-110); Potassium 4.6 mmol/L (3.5-5.1); Protein, Total 6.2 g/dL (5.8-8.1); Sodium 138 mmol/L (136-145)
[2021-02-08 06:15] LABS: Anisocytosis SLIGHT = 6-15 cells (100X) (0-5/hpf); Hypochromia SLIGHT = 6-15 cells (100X) (0-5/hpf); MDiff Complete? YES; Platelet Morphology Comment Appears Adequate; Poikilocytosis MODERATE=16-30 cells (100X) (0-5/hpf)
[2021-02-08] MEDS ORDERED: Lantus 1000 UNITS/10 ML VIAL SC SCH (08:00)
[2021-02-08] MEDS ORDERED: Lisinopril 10 MG TAB PO SCH (09:00)
[2021-02-08] MEDS ORDERED: Ferrous Gluconate 324 MG TAB PO SCH (09:00)
[2021-02-08] MEDS ORDERED: Cyanocobalamin (Vitamin B-12) 1,000 MCG TAB PO SCH (09:00)
[2021-02-08] MEDS: Furosemide 20 MG/2 ML VIAL SLOW IVP SCH ×2 (11:03)
[2021-02-08] MEDS ORDERED: Acetaminophen 325 MG TAB PO SCH (11:15)
[2021-02-08] MEDS ORDERED: Furosemide 20 MG/2 ML VIAL SLOW IVP SCH (11:15)
[2021-02-08] MEDS ORDERED: diphenhydrAMINE 12.5 MG/5 ML UDCUP PO SCH (11:15)
[2021-02-08 14:15] VITALS: BP 118/62; TEMP 98.5
[2021-02-08 15:53] LABS: Hemoglobin 7.8 g/dL (14.0-18.0)
== END 2021-02-08 16:05 | disposition home or self-care (01) ==
LOC: BURERS 17:43 → BURMED 19:10
PROVIDERS: ADMIT Family Medicine; ATTEND Family Medicine
DX: D50.0 Iron deficiency anemia secondary to blood loss (chronic) (principal); I25.10 Atherosclerotic heart disease of native coronary artery without angina pectoris; E78.5 Hyperlipidemia, unspecified; I11.0 Hypertensive heart disease with heart failure; I50.9 Heart failure, unspecified; E11.9 Type 2 diabetes mellitus without complications; Z20.822 Contact with and (suspected) exposure to COVID-19; Z79.4 Long term (current) use of insulin; Z79.84 Long term (current) use of oral hypoglycemic drugs; Z79.82 Long term (current) use of aspirin; Z79.899 Other long term (current) drug therapy; Z85.038 Personal history of other malignant neoplasm of large intestine; Z85.46 Personal history of malignant neoplasm of prostate; Z92.21 Personal history of antineoplastic chemotherapy; Z95.5 Presence of coronary angioplasty implant and graft; Z87.891 Personal history of nicotine dependence
CPT/HCPCS: 0241U; 36415; 36416; 36430; 71045; 80053; 84484; 85025; 85060; 86850; 86900; 86901; 86922; 93005; 94760; G0378; J1815; J1940; J7050; P9016

== ENCOUNTER 2021-04-08 22:18 | Observation (INO) | payer MEDICARE ==
[~2021-04-08 22:18] MED LIST: Iopamidol 370 76% 100 ML VIAL ONE
[2021-04-08] MEDS ORDERED: Meclizine HCl 25 MG TAB ONE (22:51)
[2021-04-08 23:18] LABS: Mean Corpuscular HGB CONC 28.1 g/dL (32.0-36.0); Mean Corpuscular Hemoglobin 16.1 pg (27.0-31.0); Mean Corpuscular Volume 57.2 fL (78.0-98.0); Mean Platelet Volume 5.7 fL (7.4-10.4); Platelet Count 373 thou/uL (130-400); RBC Distribution Width 21.2 % (11.5-14.5); Red Blood Cell (RBC) Count 2.51 mill/uL (4.70-6.10); White Blood Cell (WBC) Count 7.8 thou/uL (4.8-10.8)
[2021-04-08 23:19] LABS: ALT (SGPT) 13 U/L (8-55); AST (SGOT) 13 U/L (5-34); Albumin 3.4 g/dL (3.4-4.8); Alkaline Phosphatase 291 U/L (40-110); Anion Gap 12 mmol/L (10-20); BUN (Urea Nitrogen) 11 mg/dL (8.4-25.7); Bilirubin, Total 0.5 mg/dL (0.2-1.2); Calc. Creatinine Clearance 0 mL/min (70-130); Calcium 9.3 mg/dL (7.8-10.44); Carbon Dioxide 23 mmol/L (23-31); Chloride 106 mmol/L (98-107); Globulin 3.2 g/dL (2.4-3.5); Glucose 100 mg/dL (83-110); Potassium 3.9 mmol/L (3.5-5.1); Protein, Total 6.6 g/dL (5.8-8.1); Sodium 137 mmol/L (136-145)
[2021-04-09 00:22] LABS: #Basophils 0.1 thou/uL (0.0-0.2); #Eosinphils 0.2 thou/uL (0.0-0.7); #Lymphocytes 1.4 thou/uL (1.20-3.40); #Monocytes 0.8 thou/uL (0.11-0.59); #Neutrophils 5.5 thou/uL (1.40-6.50); %Basophils 0.7 % (0.0-1.0); %Eosinophils 2.3 % (0.0-10.0); %Lymphocytes 17.4 % (21.0-51.0); %Monocytes 9.7 % (0.0-10.0); %Neutrophils 69.9 % (42.0-75.0)
[2021-04-09 00:24] LABS: SARS-CoV-2 NAA Rapid Test Not Detected (NotDetected)
[2021-04-09 00:24] LABS: Hypochromia SLIGHT = 6-15 cells (100X) (0-5/hpf); MDiff Complete? YES; Microcytosis MODERATE=15-30 cells (100X) (0-5/hpf); Platelet Morphology Comment Appears Adequate; Reflex for Review?? YES
[2021-04-09 01:57] VITALS: BMI 25.2
[2021-04-09] MEDS ORDERED: Ondansetron ODT 4 MG TAB SL PRN (02:30)
[2021-04-09] MEDS ORDERED: Acetaminophen 325 MG TAB PO PRN ×2 (02:30→06:44)
[2021-04-09] MEDS ORDERED: Ondansetron PF 4 MG/2 ML Vial IVP PRN (02:30)
[2021-04-09] MEDS ORDERED: diphenhydrAMINE 25 MG CAP PO SCH (02:30)
[2021-04-09] MEDS: Sodium Chloride 0.9% 1,000 ML IV SCH (03:03)
[2021-04-09] MEDS: Acetaminophen 500 MG TAB PO SCH (04:59)
[2021-04-09] MEDS ORDERED: clonazePAM 0.5 MG TAB PO PRN (06:44)
[2021-04-09] MEDS ORDERED: Senokot S 8.6-50 MG TAB PO PRN (06:44)
[2021-04-09] MEDS ORDERED: HumaLOG 300 UNITS/3 ML VIAL SC PRN (06:52)
[2021-04-09] MEDS ORDERED: Dextrose 50% Abboject 50 ML SYRINGE SLOW IVP PRN (06:52)
[2021-04-09] MEDS ORDERED: Dextrose 5% in Water 1,000 ML IV PRN (06:52)
[2021-04-09] MEDS ORDERED: Non-Formulary Item 1 EACH (Insulin Detemir [Levemir Flextouch] 100 UNIT/ML Insuln.Pen) SQ SCH (08:00)
[2021-04-09] MEDS ORDERED: Insulin Glargine 15 UNITS in Pre-Filled Syringe 1 EACH SC SCH ×2 (09:00→21:00)
[2021-04-09] MEDS: Lantus 1000 UNITS/10 ML VIAL SC SCH (10:34)
[2021-04-09] MEDS: Cyanocobalamin (Vitamin B-12) 1,000 MCG TAB PO SCH (10:34)
[2021-04-09] MEDS: Lisinopril 10 MG TAB PO SCH (10:35)
[2021-04-09] MEDS: Famotidine 20 MG TAB PO SCH (10:35)
[2021-04-09] MEDS: Aspirin 81 mg Enteric Coated Tablet PO SCH (10:36)
[2021-04-09] MEDS: FERROUS GLUCONATE 240 MG PO SCH (10:37)
[2021-04-09 12:41] LABS: Hemoglobin 6.5 g/dL (14.0-18.0)
[2021-04-09 13:58] VITALS: BP 123/63; TEMP 99.3
[2021-04-09] MEDS ORDERED: Lantus 1000 UNITS/10 ML VIAL SC SCH (21:00)
== END 2021-04-09 15:35 | disposition home or self-care (01) ==
LOC: BURERS 22:18 → BURMED 23:30 → UNDOADMIN 23:30
PROVIDERS: ADMIT Family Medicine; ATTEND Family Medicine
DX: K92.2 Gastrointestinal hemorrhage, unspecified (principal); D50.0 Iron deficiency anemia secondary to blood loss (chronic); R93.3 Abnormal findings on diagnostic imaging of other parts of digestive tract; I11.0 Hypertensive heart disease with heart failure; I50.1 Left ventricular failure, unspecified; E11.9 Type 2 diabetes mellitus without complications; I25.10 Atherosclerotic heart disease of native coronary artery without angina pectoris; N40.0 Benign prostatic hyperplasia without lower urinary tract symptoms; K21.9 Gastro-esophageal reflux disease without esophagitis; E78.5 Hyperlipidemia, unspecified; E78.00 Pure hypercholesterolemia, unspecified; Z85.038 Personal history of other malignant neoplasm of large intestine; Z85.46 Personal history of malignant neoplasm of prostate; Z87.891 Personal history of nicotine dependence; Z79.4 Long term (current) use of insulin; Z79.84 Long term (current) use of oral hypoglycemic drugs; Z79.899 Other long term (current) drug therapy; Z90.49 Acquired absence of other specified parts of digestive tract; Z20.822 Contact with and (suspected) exposure to COVID-19
CPT/HCPCS: 36416; 36430; 74177; 80053; 83880; 84484; 85014; 85018; 85025; 85060; 86850; 86900; 86901; G0378; J1815; P9016; Q9967; U0002

== ENCOUNTER 2022-07-17 14:54 | Emergency (ER) | payer MEDICARE ==
[2022-07-17] MEDS ORDERED: Lidocaine 1% (PF) 30 ML VIAL ONE (15:25)
[2022-07-17] MEDS ORDERED: Boostrix 0.5 ML (Tdap) VIAL (>/=7 yrs of age) ONE (16:03)
[2022-07-17] MEDS ORDERED: Bacitracin 1 PK ONE (16:03)
[2022-07-17] MEDS ORDERED: Clindamycin 150 MG CAP ONE (16:03)
== END 2022-07-17 16:14 | disposition home or self-care (01) ==
LOC: BURERS 14:54
DX: L02.11 Cutaneous abscess of neck (principal); L02.811 Cutaneous abscess of head [any part, except face]; F17.210 Nicotine dependence, cigarettes, uncomplicated; Z23 Encounter for immunization
CPT/HCPCS: 10060; 87070; 87077; 87186; 87205; 90471; 90715; J2001

== ENCOUNTER 2022-07-18 17:33 | Emergency (ER) | payer MEDICARE | END 2022-07-18 18:08 | disposition home or self-care (01) | LOC: BURERS 17:33 | DX: S11.90XD Unspecified open wound of unspecified part of neck, subsequent encounter (principal); E11.9 Type 2 diabetes mellitus without complications; K21.9 Gastro-esophageal reflux disease without esophagitis; I11.0 Hypertensive heart disease with heart failure; I50.9 Heart failure, unspecified; E78.00 Pure hypercholesterolemia, unspecified; F17.210 Nicotine dependence, cigarettes, uncomplicated | CPT/HCPCS: 99282 ==

== ENCOUNTER 2022-08-12 10:45 | Emergency (ER) | payer MEDICARE ==
[2022-08-12 11:41] LABS: Hemoglobin 7.9 g/dL (14.0-18.0); Mean Corpuscular HGB CONC 28.7 g/dL (32.0-36.0); Mean Corpuscular Hemoglobin 19.7 pg (27.0-31.0); Mean Corpuscular Volume 68.5 fl (78.0-98.0); Mean Platelet Volume 8.1 fL (7.4-10.4); Platelet Count 410 10x3/uL (130-400); RBC Distribution Width 20.6 % (11.5-14.5); Red Blood Cell (RBC) Count 4.02 mill/uL (4.70-6.10); White Blood Cell (WBC) Count 9.2 10x3/uL (4.8-10.8)
[2022-08-12 11:45] LABS: #Basophils 0.1 thou/uL (0.0-0.2); #Lymphocytes 1.3 thou/uL (1.20-3.40); #Monocytes 0.5 thou/uL (0.11-0.59); #Neutrophils 7.3 thou/uL (1.40-6.50); %Basophils 0.7 % (0.0-1.0); %Eosinophils 0.2 % (0.0-10.0); %Lymphocytes 14.5 % (21.0-51.0); %Neutrophils 79.6 % (42.0-75.0)
[2022-08-12 11:54] LABS: ALT (SGPT) 92 U/L (8-55); AST (SGOT) 269 U/L (5-34); Albumin 2.7 g/dL (3.4-4.8); Alkaline Phosphatase 1629 U/L (40-110); Anion Gap 15 mmol/L (10-20); BUN (Urea Nitrogen) 39 mg/dL (8.4-25.7); Bilirubin, Total 23.8 mg/dL (0.2-1.2); Calc. Creatinine Clearance 0 mL/min (70-130); Calcium 11.4 mg/dL (7.8-10.44); Carbon Dioxide 24 mmol/L (23-31); Chloride 99 mmol/L (98-107); Estimated GFR 31; Globulin 5.1 g/dL (2.4-3.5); Glucose 77 mg/dL (83-110); Potassium 4.4 mmol/L (3.5-5.1); Protein, Total 7.8 g/dL (5.8-8.1); Sodium 134 mmol/L (136-145)
[2022-08-12 12:01] LABS: Anisocytosis SLIGHT = 6-15 cells (100X) (0-5/hpf); Hypochromia SLIGHT = 6-15 cells (100X) (0-5/hpf); MDiff Complete? YES; Microcytosis MARKED = >30 cells (100X) (0-5/hpf); Platelet Morphology Comment Appears Increased; Reflex for Review?? NO; Target Cells MODERATE= 6-15 cells (100X) (0-1/hpf)
== END 2022-08-12 12:45 | disposition home or self-care (01) ==
LOC: BURERS 10:45
DX: R06.02 Shortness of breath (principal); C18.9 Malignant neoplasm of colon, unspecified; C78.7 Secondary malignant neoplasm of liver and intrahepatic bile duct; I13.0 Hypertensive heart and chronic kidney disease with heart failure and stage 1 through stage 4 chronic kidney disease, or unspecified chronic kidney disease; E11.22 Type 2 diabetes mellitus with diabetic chronic kidney disease; N18.30 Chronic kidney disease, stage 3 unspecified; I50.9 Heart failure, unspecified; K21.9 Gastro-esophageal reflux disease without esophagitis; E78.00 Pure hypercholesterolemia, unspecified; F17.210 Nicotine dependence, cigarettes, uncomplicated; Z79.899 Other long term (current) drug therapy; Z79.4 Long term (current) use of insulin
CPT/HCPCS: 71045; 80053; 83880; 84484; 85025; 93005; 94760